=== PATIENT | female | born 2000 | race Two or more races ===

== ENCOUNTER → 2024-01-02 | Outpatient (CLI) | payer BC ==
[2024-01-02 18:21] LABS: HEMATOCRIT 38.4 % (36.0-47.0); HEMOGLOBIN 12.9 g/dl (12.0-15.5); MEAN CORPUSCULAR HEMOGLOBIN 30.4 pg (27.0-33.0); MEAN CORPUSCULAR HGB CONC 33.6 g/dl (32.0-36.5); MEAN CORPUSCULAR VOLUME 90.4 fl (80.0-96.0); PLATELET COUNT, AUTOMATED 236 10^3/uL (150-450); RED BLOOD COUNT 4.25 10^6/uL (4.00-5.40)
[2024-01-02 19:14] LABS: HIV 1&2 SCREEN NEGATIVE (NEGATIVE)
[2024-01-02 19:22] LABS: HEPATITIS C VIRUS ABY INDEX < 0.02 INDEX (<0.8)
[2024-01-02 22:38] LABS: GC DNA AMPLIFICATION NEGATIVE (NEGATIVE)
== END ==
LOC: M PLALAB 14:25
PROVIDERS: ATTEND Advanced Practice Midwife
DX: Z34.01 Encounter for supervision of normal first pregnancy, first trimester (principal)

== ENCOUNTER → 2024-02-27 | Outpatient (CLI) | payer BC | LOC: M WHC 09:16 | PROVIDERS: ATTEND Obstetrics & Gynecology | DX: Z36.3 Encounter for antenatal screening for malformations (principal); Z3A.19 19 weeks gestation of pregnancy ==

== ENCOUNTER → 2024-04-24 | Outpatient (CLI) | payer BC ==
[2024-04-24 17:44] LABS: HEMATOCRIT 35.7 % (36.0-47.0); HEMOGLOBIN 11.9 g/dl (12.0-15.5); MEAN CORPUSCULAR HEMOGLOBIN 31.2 pg (27.0-33.0); MEAN CORPUSCULAR HGB CONC 33.3 g/dl (32.0-36.5); MEAN CORPUSCULAR VOLUME 93.5 fl (80.0-96.0); PLATELET COUNT, AUTOMATED 272 10^3/uL (150-450); RED BLOOD COUNT 3.82 10^6/uL (4.00-5.40); WHITE BLOOD COUNT 7.6 10^3/uL (4.0-10.0)
[2024-04-24 18:14] LABS: GLUCOSE CHALLENGE TEST 1 HOUR 94 MG/DL (LESS THAN 140)
[2024-04-24 19:08] LABS: GC DNA AMPLIFICATION NEGATIVE (NEGATIVE)
[2024-04-26 17:28] LABS: HIV 1&2 SCREEN NEGATIVE (NEGATIVE)
[2024-04-26 17:35] LABS: HEPATITIS C VIRUS ABY INDEX < 0.02 INDEX (<0.8)
== END ==
LOC: M PLALAB 13:54
PROVIDERS: ATTEND Advanced Practice Midwife
DX: Z34.82 Encounter for supervision of other normal pregnancy, second trimester (principal)

== ENCOUNTER → 2024-06-26 | Outpatient (CLI) | payer BC | LOC: M WHC 08:42 | PROVIDERS: ATTEND Obstetrics & Gynecology | DX: Z34.03 Encounter for supervision of normal first pregnancy, third trimester (principal); Z3A.00 Weeks of gestation of pregnancy not specified; Z53.9 Procedure and treatment not carried out, unspecified reason ==

== ENCOUNTER → 2024-06-26 | Outpatient (REF) | payer BC | LOC: M SFHCWAGY 09:44 | PROVIDERS: ATTEND Obstetrics & Gynecology | DX: Z36.85 Encounter for antenatal screening for Streptococcus B (principal); Z3A.36 36 weeks gestation of pregnancy ==

== ENCOUNTER → 2024-07-03 | Outpatient (CLI) | payer BC | LOC: M WHC 12:05 | PROVIDERS: ATTEND Obstetrics & Gynecology | DX: O26.843 Uterine size-date discrepancy, third trimester (principal); Z3A.37 37 weeks gestation of pregnancy ==

== ENCOUNTER 2024-07-15 01:19 | Inpatient (IN) | payer BC ==
[2024-07-15] VITALS (11 sets, daily range): BP systolic 117–143; BP diastolic 55–87; O2SAT 97–98
[~2024-07-15] VITALS: Ht 172.7 cm; Wt 67.5 kg
[2024-07-15] MEDS ORDERED: OXYTOCIN INJ 10UNITS/ML 1ML VIAL IM PRN (01:50)
[2024-07-15] MEDS ORDERED: METHYLERGONOVINE MALEATE 0.2MG/ML 1ML VIAL IM PRN (01:50)
[2024-07-15] MEDS ORDERED: TRANEXAMIC ACID INJection 1,000 MG in NS 100 ML IV PRN (01:50)
[2024-07-15 02:16] LABS: HEMATOCRIT 34.3 % (36.0-47.0); HEMOGLOBIN 11.6 g/dl (12.0-15.5); MEAN CORPUSCULAR HEMOGLOBIN 29.4 pg (27.0-33.0); MEAN CORPUSCULAR HGB CONC 33.8 g/dl (32.0-36.5); MEAN CORPUSCULAR VOLUME 87.1 fl (80.0-96.0); PLATELET COUNT, AUTOMATED 233 10^3/uL (150-450); RED BLOOD COUNT 3.94 10^6/uL (4.00-5.40)
[2024-07-15] MEDS: LIDOCAINE 1% MDV 20ML VIAL INFIL PRN (03:08)
[2024-07-15] MEDS: OXYTOCIN DRIP 30 UNITS in IV 1 EA IV PRN (03:09)
[2024-07-15] MEDS ORDERED: MOM 30ML SUSPENSION UDC PO PRN (03:50)
[2024-07-15] MEDS ORDERED: DOCUSATE SODIUM 100MG CAPSULE PO PRN (03:50)
[2024-07-15] MEDS ORDERED: ACETAMINOPHEN 325 MG TAB PO PRN (03:50)
[2024-07-15] MEDS ORDERED: ACETAMINOPHEN 500 MG TAB PO PRN (03:50)
[2024-07-15] MEDS ORDERED: IBUPROFEN 600MG TAB PO PRN (03:50)
[2024-07-15] MEDS ORDERED: DIBUCAINE 1% OINTMENT 30GM TOP PRN (03:50)
[2024-07-15] MEDS ORDERED: IBUPROFEN 800 MG TAB PO PRN (03:50)
[2024-07-15] MEDS ORDERED: ANUSOL HC CREAM 30GM TOP PRN (03:50)
[2024-07-15] MEDS: PRENATAL VITAMINS CHEWABLE TABLET PO SCH (07:57)
[2024-07-15 11:22] LABS: HEPATITIS C VIRUS ABY INDEX 0.17 INDEX (<0.8)
[2024-07-16 06:00] VITALS: BP 116/67; O2SAT 98
[2024-07-16] MEDS: RHOGAM 300MCG (1500IU) INJ IM SCH (09:18)
[2024-07-16 18:00] VITALS: BP 118/69; O2SAT 97
[2024-07-17 06:00] VITALS: BP 119/73; O2SAT 99
[2024-07-17] MEDS: MEASLES,MUMPS,RUBELLA VACCINE INJ (MMR-II) SC.IMMUN ONE (08:51)
[2024-07-17] MEDS: BOOSTRIX VACCINE (TETANUS/DIPHTH/ACEL. PERTUSSIS) 0.5ML SYR IM.IMMUN ONE (09:45)
[2024-07-17] MEDS ORDERED: COLA100C5 PO (11:07)
[2024-07-17] MEDS ORDERED: IBUP-1022 PO (11:07)
[2024-07-17] MEDS ORDERED: ACET-683 PO (11:07)
== END 2024-07-17 11:35 | disposition home or self-care (01) | DRG 560 ==
LOC: M LDO 01:19 → M LDI 01:32 → M OBS 05:08
PROVIDERS: ADMIT Advanced Practice Midwife; ATTEND Advanced Practice Midwife
PROC: 10E0XZZ Delivery of Products of Conception, External Approach (ICD-10-PCS; principal; 2024-07-15)
PROC: 0KQM0ZZ Repair Perineum Muscle, Open Approach (ICD-10-PCS; 2024-07-15)
DX: O70.1 Second degree perineal laceration during delivery (principal); Z3A.38 38 weeks gestation of pregnancy; Z37.0 Single live birth

== ENCOUNTER → 2025-03-04 | Outpatient (REF) | payer BC ==
[~2025-03-04] MED LIST: ACET-683 PO; COLA100C5 PO; IBUP-1022 PO
== END ==
LOC: M PLALAB 14:19
PROVIDERS: ATTEND Advanced Practice Midwife
DX: Z12.4 Encounter for screening for malignant neoplasm of cervix (principal)